=== PATIENT | female | born 1950 | race Caucasian/White ===

== ENCOUNTER 2018-08-19 07:57 | Day surgery (SDC) | payer MEDICARE, OTHER, BC ==
[~2018-08-19 07:57] MED LIST: PROPOFOL 500 MG/50 ML EMU IV ONE
[2018-08-19] MEDS ORDERED: GLYCOPYRROLATE 0.2 MG/ML SOL ONE (09:27)
[2018-08-19 09:39] VITALS: TEMP 96.6
[2018-08-19 10:05] VITALS: RESP 20; O2SAT 98
[2018-08-19 10:07] VITALS: BP 137/88; PULSE 64
[2018-08-19 15:30] LABS: PATHOLOGY SPEC OR BIOPSY REFER MAYO/MKTO PATH
== END 2018-08-19 10:26 | disposition home or self-care (01) | DRG 951 ==
LOC: SURG 07:57
PROVIDERS: ATTEND Internal Medicine Gastroenterology
DX: Z12.11 Encounter for screening for malignant neoplasm of colon (principal); Z83.71 Family history of colonic polyps; L53.8 Other specified erythematous conditions; K63.5 Polyp of colon; K64.8 Other hemorrhoids; K52.89 Other specified noninfective gastroenteritis and colitis
CPT/HCPCS: J7643; J2704